=== PATIENT | male | born 1995 | race Two or more races ===

== ENCOUNTER 2022-04-21 17:13 | Emergency (ER) | payer OTHER ==
[~2022-04-21] VITALS: Ht 170.2 cm; Wt 83.5 kg
[2022-04-21] MEDS ORDERED: IBUPROFEN 600 MG TABLET ONE (18:52)
[2022-04-21] MEDS ORDERED: IBUPROFEN 600 MG TABLET PO ONE (19:00)
--- NOTE | 2022-04-21 19:08 | NUR ---
Patient discharged to home in stable condition. Written and verbal after care instructions given. Patient verbalizes understanding of instructions. Stressed follow up or return to ER for worsening s/s. Steady gait, denies any pain/discomfort upon discharge. Picked up by family.
[2022-04-21 19:27] VITALS: BP 122/60
== END 2022-04-21 19:11 | disposition home or self-care (01) ==
LOC: ER 17:26
DX: S52.125A Nondisplaced fracture of head of left radius, initial encounter for closed fracture (principal); W01.0XXA Fall on same level from slipping, tripping and stumbling without subsequent striking against object, initial encounter; Y92.89 Other specified places as the place of occurrence of the external cause
CPT/HCPCS: 73080; 73090; 73110; A4663